=== PATIENT | female | born 1995 | race Caucasian/White ===

== ENCOUNTER 2024-05-28 07:58 | Emergency (ER) | payer MEDICAID ==
[~2024-05-28] VITALS: Ht 167.6 cm; Wt 73.0 kg
[2024-05-28 08:01] VITALS: O2SAT 100
[2024-05-28] MEDS: MORPHINE SULFATE 4 MG/ML INJ (FOR IV/IM USE) IV ONE (09:10)
[2024-05-28 09:11] LABS: BASOPHILS % 0.9 % (0.0-2.0); HEMOGLOBIN. 13.4 g/dL (12.0-16.0); LYMPHOCYTES % 11.4 % (20.0-50.0); MEAN CORPUSCULAR HEMOGLOBIN 31.3 pg (28.0-32.0); MEAN CORPUSCULAR HGB CONC 33.4 g/dL (31.0-37.0); MEAN CORPUSCULAR VOLUME 93.7 fL (81.0-99.0); MEAN PLATELET VOLUME 8.8 fl (7.4-10.4); MONOCYTES % 7.3 % (2.0-8.0); NEUTROPHILS % 78.4 % (40.0-76.0); PLATELET 225 x1000/uL (130-400); RED BLOOD CELL COUNT 4.27 mill/uL (4.2-5.4); RED CELL DISTRIBUTION WIDTH 15.4 % (11.6-14.6); WHITE BLOOD COUNT 9.7 x1000/uL (4.5-11.0)
[2024-05-28 09:15] LABS: PROTHROMBIN TIME 10.9 sec (9.6-11.0)
[2024-05-28 09:16] LABS: CHLORIDE 107 mEq/L (98-107); POTASSIUM 4.1 mEq/L (3.5-5.1); SODIUM 140 mEq/L (136-145)
[2024-05-28 09:17] LABS: CALCIUM 9.2 mg/dL (8.7-10.4); CARBON DIOXIDE 23 mEq/L (21-32)
[2024-05-28 09:22] LABS: CREATININE 0.8 mg/dL (0.6-1.0); GLUCOSE 99 mg/dL (70-105); UREA NITROGEN BLOOD 19 mg/dL (9-23)
[2024-05-28 09:57] LABS: TROPONIN I HIGH SENSITIVITY < 4 ng/L (3.0-34)
[2024-05-28 10:25] VITALS: TEMP 37.05852
[2024-05-28 14:08] LABS: HCG SCREEN NEGATIVE
[2024-05-28] MEDS: IOHEXOL-350 100 ML BOTTLE ONE (15:49)
[2024-05-28 16:43] VITALS: BP 110/78; PULSE 75; RESP 15; O2SAT 97
== END 2024-05-28 16:45 | disposition home or self-care (01) ==
LOC: ER 07:58
DX: R79.1 Abnormal coagulation profile (principal); Z86.39 Personal history of other endocrine, nutritional and metabolic disease
CPT/HCPCS: 80048; 84703; 83880; 85025; 85379; 85610; 84484; 36415; 71045; 71275; 93005; 99285; Q9967; Z7610 ×2; A4606